=== PATIENT | male | born 1980 | race Caucasian/White ===

== ENCOUNTER 2017-04-11 15:15 | Inpatient (IN) | payer BC ==
[~2017-04-11] VITALS: Ht 188 cm; Wt 68.5 kg
--- NOTE | ~2017-04-11 | DS ---
PATIENT'S NAME: HOA LONDONO [facility] AGE: 36 Y [address] ROOM: [id number] [place], [place] [address] LOCATION: GPCU ADMIT DATE: 04/11/2017 Discharge Summary DISCHARGE DATE: 04/15/2017 FAMILY PHYSICIAN: Klaudia Sauceda MD ATTENDING PHYSICIAN: Alex Conklin [facility] COURSE: This is a 36-year-old white male with no significant past medical history, who was transferred from [place] to [facility] with sepsis secondary to possible aspiration pneumonia, also with epigastric right upper quadrant pain. Here, he was started on Cefepime and Flagyl and fluids. He had a CT scan of his abdomen and pelvis that was done in [place]. This was within normal limits. We obtained an abdominal ultrasound which showed gallbladder wall thickening. Wall thickening could be associated with incomplete gallbladder distention and/or acute cholecystitis. Surgery was consulted. They do no feel that in view of his CT abdomen and pelvis that did not show any acute abnormalities that this was consistent with acute cholecystitis. Recommended GI consultation. GI was consulted and they do not feel that he required any EGD acutely at this time. He was started on Protonix b.i.d. and was monitored on this. On April 13, he started developing a little bit hypoxia. Chest x-ray showed left-sided possible pneumonia and his antibiotics was tapered from cefepime to Flagyl. He was pancultured and it was negative so far. So, in view of his left lower lobe pneumonia and possible aspiration, he was started on clindamycin as he has a penicillin allergy. Of note, during this hospitalization, he had a couple bouts of small diarrhea. This was sent for C. diff and this was negative. He was also mildly hypokalemic and had mild hypomagnesemia and this was replaced. At the time of discharge, he is hemodynamically stable. The patient is on room air, not on oxygen, and his right upper quadrant pain has resolved. He did say that although it does come off and on at times. The patient will need to follow up with PCP in 1 week. I will discharge him on clindamycin 450 mg q.6 hours for a total of 10 days and I will also discharge him on Protonix 40 mg p.o. daily, and he is to follow up with GI in 1 month. PHYSICAL EXAMINATION: VITAL SIGNS: His vitals at discharge are, he is afebrile. His pulse in the upper 50s low 60s. Blood pressure is 120s/80s. He is saturating at 94% to 96% on room air. GENERAL: He is alert, awake. He is oriented x3. He is in no acute distress. HEART: Regular rate and rhythm. No rubs. No murmurs. LUNGS: His lungs are clear. No crackles. No wheezing present. ABDOMEN: No guarding. No rigidity. No distension. He has no epigastric or right upper quadrant tenderness that has resolved. Bowel sounds are normal. No pedal edema. NEUROLOGIC: Grossly normal. PATIENT'S NAME: HOA LONDONO [facility] AGE: 36 Y [address] ROOM: [place] [address] [facility] ADMIT DATE: 04/11/2017 Discharge Summary DISCHARGE DATE: 04/15/2017 FAMILY PHYSICIAN: Klaudia Sauceda MD ATTENDING PHYSICIAN: Alex Conklin PSYCHIATRIC: He is alert, awake, oriented. He is able to make his own decisions. DISCHARGE MEDICATIONS: 1. Clindamycin 450 q.6 hours for a total of 10 days. 2. Protonix 40 mg p.o. daily. MD YESICA OSORIO/sourav /[id number] d: 04/16/17 0402 t: 04/16/17 1331, DISCHARGE SUMMARY
--- NOTE | ~2017-04-11 | HP ---
PATIENT'S NAME: HOA LONDONO [facility] AGE: 36 Y [address] ROOM: [place] [address] LOCATION: GPCU ADMIT DATE: 04/11/2017 History & Physical DISCHARGE DATE: FAMILY PHYSICIAN: PHYSICIAN, UNKNOWN ATTENDING PHYSICIAN: Alex Conklin DATE OF SERVICE: CHIEF COMPLAINT: Severe sepsis. HISTORY OF PRESENTING ILLNESS: This 36-year-old, white male, previously healthy, was transferred to [facility] from [place] with severe sepsis. He presented there this morning with epigastric pain, right upper quadrant pain of 3 days' duration. He states it began on Sunday. He developed progressive nausea and has not been able to keep anything down for the last couple of days. He thinks that he has had some low-grade fevers, but admits that he has not actually taken his temperature at home. He denies chills or sweats. He does feel a little lightheaded and required the assistance of his father to get to the hospital this morning. On his arrival there, his pulse was tachycardic at greater than 100, and his systolic blood pressure was 102/62. He received some aggressive IV fluids with only marginal improvement. He did develop a temperature to 101.9 degrees Fahrenheit while he was there. He denies headaches. He does complain of some persistent nausea. He denies chest pain or significant shortness of breath. His pain is localized over the epigastrium and right side. It hurts to the touch and gets worse when he eats. He has not stooled in several days but does pass flatus. He voids without any difficulties. He denies any body rash. No numbness, tingling, or weakness in his extremities or any other associated physical or constitutional complaints. PAST MEDICAL HISTORY: ALLERGIES: PENICILLIN. ILLNESSES: Tobacco dependence (chewing tobacco). CURRENT MEDICATIONS: Ibuprofen 200 mg p.o. t.i.d. p.r.n. FAMILY HISTORY: PATIENT'S NAME: HOA LONDONO [facility] AGE: 36 Y [address] ROOM: [place] [address] LOCATION: GPCU ADMIT DATE: 04/11/2017 History & Physical DISCHARGE DATE: FAMILY PHYSICIAN: PHYSICIAN, UNKNOWN ATTENDING PHYSICIAN: Alex Conklin Father has high blood pressure and high cholesterol. SOCIAL HISTORY: He works at [employer]. He lives in [place]. He is a nonsmoker, but does chew tobacco on a daily basis. No significant alcohol use. He denies any illicit drug use. REVIEW OF SYSTEMS: As per HPI. All other organ systems reviewed and are negative. PHYSICAL EXAMINATION: VITAL SIGNS: Temperature 101.6, pulse 86, respirations 20, blood pressure 110/67, and O2 saturation 96% on room air. GENERAL: He is cooperative, lying in the bed, in no acute distress. SKIN: Supple, pink, warm, dry. No obvious rashes. HEENT: Otherwise, normocephalic. Sclerae, nonicteric. Pupils equal, round, and reactive to light and accommodation. Extraocular movements appear intact. Nasal turbinates normal in appearance. Oropharynx, clear. Mucous membranes are pink and moist. Teeth are in poor repair. NECK: Supple. No masses or adenopathy. No thyromegaly. No JVD. CHEST: Wall is symmetrical. Heart is regular without murmurs. LUNGS: Diminished, but clear bilaterally. No wheezes or crackles are heard. ABDOMEN: Soft. Exquisitely tender with some guarding at the right upper quadrant. No rebound tenderness. Bowel sounds are present but diminished. No masses. No hepatosplenomegaly. GENITOURINARY: Not done. RECTAL: Not done. EXTREMITIES: Display no clubbing, cyanosis, or edema. NEUROLOGIC: Neurologically, mentation is slowed, but there are no focal deficits. LABORATORY DATA AND IMAGING STUDIES: Laboratory and x-ray data: CBC showed a white blood cell count of 13.1, hemoglobin is 15.0, hematocrit 42.4, and platelets 234,000. Chemistries revealed BUN and creatinine of 12 and 1.3 respectively; sodium and potassium of 133 and 3.4; chloride and CO2 are 96 and 12; and calcium was 9.9. AST and ALT 25 and 17 respectively. Bilirubin was a little elevated at 1.3, amylase and lipase are 45 and 17 respectively. C-reactive protein was 103.6, and sedimentation rate of 38. ASSESSMENT AND PLAN: 1. Severe sepsis suspect biliary process. He did have a CT scan done at [place], but I do not have those results available yet. We will try to get the images pushed over and get a formal interpretation. In the meantime, aggressive supportive cares including continued IV fluids and PATIENT'S NAME: HOA LONDONO [facility] AGE: 36 Y [address] ROOM: [id number] [place], [place] [address] [facility] ADMIT DATE: 04/11/2017 History & Physical DISCHARGE DATE: FAMILY PHYSICIAN: PHYSICIAN, UNKNOWN ATTENDING PHYSICIAN: Alex Conklin broad-spectrum antibiotic therapy. We will switch to cefepime and add Flagyl. We will provide some symptomatic measures and follow up cultures when they are available. 2. Right upper quadrant abdominal pain. His bilirubin is only marginally elevated and liver enzymes are surprisingly normal. We will get right upper quadrant abdominal ultrasound and follow up on that when the results are known. 3. Hypokalemia. We will replace. 4. Hypotension. He is only marginally hypotensive and I suspect he is significantly volume depleted. He has responded fairly well to crystalloids. We will plan to continue with IV fluids as above. 5. Tobaccoism, urged cessation. We will offer nicotine supplementation. 6. Deep venous thrombosis prophylaxis. We will use low-dose Lovenox while he is inpatient. MD BRAYDEN CALVILLO/sourav /[id number] D: [id number] T: [id number] HISTORY & PHYSICAL
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
--- NOTE | ~2017-04-11 | CON ---
PATIENT'S NAME: HOA LONDONO [facility] AGE: 36 Y [address] ROOM: [facility] [place], [place] [address] LOCATION: GPCU ADMIT DATE: 04/11/2017 Consultation DISCHARGE DATE: FAMILY PHYSICIAN: Klaudia Sauceda MD ATTENDING PHYSICIAN: Alex Conklin REFERRING PHYSICIAN: Kiran Mandujano MD LOCATION: The patient is in room 6323. REASON FOR CONSULT: Abdominal pain. Possible need for EGD. HISTORY OF PRESENT ILLNESS: This is a 36-year-old male, who [facility] view of abdominal pain, possible sepsis, and cholecystitis. The patient has been addressed by Surgical Service. In this regard, his CT scan of the abdomen was normal as done at the [facility]. His white count was slightly high on admission, but is normal now. His liver function tests have been persistently normal. The patient has undergone CT scan, as well as abdominal ultrasound, which has been unrevealing. His serum amylase and lipase values were normal. Followup values are pending, question high CRP of 103.6, rather that relates to any possibility of underlying pancreatitis. The patient has been well otherwise and takes ibuprofen on an outpatient basis. Presently, he is covered with PPI as well as multiple antibiotics. He has had trouble with constipation; however, his bowels have been moving since after admission. PAST MEDICAL HISTORY: Otherwise negative. PAST SURGICAL HISTORY: None. MEDICATIONS: As noted in his records. SOCIAL HISTORY: Chews tobacco. Negative for smoking. Denies alcohol abuse. FAMILY HISTORY: None for GI cancer. REVIEW OF SYSTEMS: The 10-point review of system otherwise negative except as noted above. PATIENT'S NAME: HOA LONDONO [facility] AGE: 36 Y [address] ROOM: [address] [place], [place] [address] LOCATION: GPCU ADMIT DATE: 04/11/2017 Consultation DISCHARGE DATE: FAMILY PHYSICIAN: Klaudia Sauceda MD ATTENDING PHYSICIAN: Alex Conklin PHYSICAL EXAMINATION: GENERAL: A well-developed, well-nourished man, in no acute distress. VITAL SIGNS: Afebrile, vital signs are otherwise stable. HEENT: Nonicteric sclerae. Pupils round and reactive. NECK: Supple without palpable nodes. No thyromegaly. CHEST: Clear to auscultation. HEART: S1, S2 normal. ABDOMEN: Soft and nondistended with epigastric and left lower quadrant tenderness. There is no rebound or guarding. Bowel sounds are present. EXTREMITIES: No edema. NEUROLOGIC: Awake, alert, and appropriate without any focal deficits. IMAGING DATA: Chest x-ray revealing possible infiltrate, left lower lobe. ASSESSMENT AND PLAN: A 36-year-old male presenting with possible sepsis, likely source being left- sided pneumonia. The high CRP could be reflection of his underlying infection, and in consideration of abdominal pain, question pancreatitis, however, nothing has shown biochemically or radiologically so far. The patient has been evaluated for surgery. At this point, advised conservative management with antibiotics. I agree with continuation of antibiotics, followup abdominal and chest films, and coverage with proton pump inhibitor. I do not see the emergent need for upper endoscopy at this point and can be carried out once his condition is medically stable. Thank you for this consult. JEAN CAMPOVERDE MD AM/sourav /[id number] d: 04/13/173 t: 04/17/17 0741, CONSULTATION REPORT
[2017-04-11] MEDS ORDERED: ADVIL200 MG PO (15:37)
[2017-04-12 03:48] LABS: BASOPHIL % 0.4 %; EOSINOPHIL % 0.2 %; HEMATOCRIT 34.9 % (37.0-53.0); HEMOGLOBIN 11.8 g/dL (12.0-17.0); IMMATURE GRANULOCYTE # 0.1 K/uL (0.0-0.3); IMMATURE GRANULOCYTE % 0.6 %; LYMPHOCYTE # 1.5 K/uL (0.8-4.0); LYMPHOCYTE % 13.5 %; MCH 29.9 pg (27.0-34.0); MCHC 33.8 gm/dL (32.0-36.5); MCV 88.6 fl (83.0-98.0); MONOCYTE # 1.4 K/uL (0.0-1.0); MONOCYTE % 12.6 %; MPV 9.2 fl (9.4-12.4); NEUTROPHIL # (ANC) 8.3 K/uL (1.4-9.0); NEUTROPHIL % 72.7 %; NRBC % 0 /100WBC (0-0.00); PLATELET COUNT 187 K/uL (150-450); RBC 3.94 M/uL (4.00-6.00); WBC 11.3 K/uL (4.0-11.0)
[2017-04-12 04:05] LABS: ALBUMIN 2.7 gm/dL (3.5-5.0); ALK PHOS 61 IU/L (33-138); ALT 18 IU/L (12-78); ANION GAP 13.1 (10.0-19.0); AST 23 IU/L (10-40); BLOOD UREA NITROGEN 10 mg/dL (6-24); CALCIUM 7.6 mg/dL (8.5-10.5); CHLORIDE 111 mMol/L (96-110); CO2 21 mMol/L (22-32); CREATININE 0.8 mg/dL (0.6-1.3); POTASSIUM 4.1 mMol/L (3.7-5.1); SODIUM 141 mMol/L (135-145); TOTAL BILIRUBIN 0.5 mg/dL (0.0-1.5); TOTAL PROTEIN 6.3 g/dL (6.0-8.4)
[2017-04-13 06:11] LABS: BASOPHIL % 0.4 %; EOSINOPHIL # 0.1 K/uL (0.0-0.5); EOSINOPHIL % 0.6 %; HEMATOCRIT 35.9 % (37.0-53.0); HEMOGLOBIN 12.2 g/dL (12.0-17.0); IMMATURE GRANULOCYTE % 0.3 %; LYMPHOCYTE # 1.5 K/uL (0.8-4.0); LYMPHOCYTE % 15.2 %; MCH 30.7 pg (27.0-34.0); MCV 90.2 fl (83.0-98.0); MONOCYTE % 10.7 %; MPV 9.4 fl (9.4-12.4); NEUTROPHIL % 72.8 %; NRBC % 0 /100WBC (0-0.00); PLATELET COUNT 192 K/uL (150-450); RBC 3.98 M/uL (4.00-6.00); RDW-CV 12.7 % (11.9-14.6); WBC 9.7 K/uL (4.0-11.0)
[2017-04-13 06:27] LABS: ALBUMIN 2.8 gm/dL (3.5-5.0); ALK PHOS 70 IU/L (33-138); ALT 18 IU/L (12-78); ANION GAP 10.6 (10.0-19.0); AST 22 IU/L (10-40); BLOOD UREA NITROGEN 8 mg/dL (6-24); CALCIUM 8.2 mg/dL (8.5-10.5); CHLORIDE 108 mMol/L (96-110); CO2 24 mMol/L (22-32); CREATININE 0.8 mg/dL (0.6-1.3); POTASSIUM 3.6 mMol/L (3.7-5.1); SODIUM 139 mMol/L (135-145); TOTAL PROTEIN 6.6 g/dL (6.0-8.4)
[2017-04-13 06:31] LABS: TOTAL BILIRUBIN 0.8 mg/dL (0.0-1.5)
[2017-04-13 13:03] LABS: COCAINE NEGATIVE (NEGATIVE); OPIATES NEGATIVE (NEGATIVE)
[2017-04-13 13:04] LABS: AMPHETAMINE NEGATIVE (NEGATIVE); BARBITURATE NEGATIVE (NEGATIVE)
[2017-04-14 06:29] LABS: ALBUMIN 2.6 gm/dL (3.5-5.0); ALK PHOS 64 IU/L (33-138); ALT 17 IU/L (12-78); ANION GAP 11.2 (10.0-19.0); AST 19 IU/L (10-40); BLOOD UREA NITROGEN 5 mg/dL (6-24); CHLORIDE 105 mMol/L (96-110); CO2 27 mMol/L (22-32); CREATININE 0.7 mg/dL (0.6-1.3); MAGNESIUM 1.9 mg/dL (1.8-2.6); POTASSIUM 3.2 mMol/L (3.7-5.1); SODIUM 140 mMol/L (135-145); TOTAL PROTEIN 6.4 g/dL (6.0-8.4)
[2017-04-14 06:30] LABS: TOTAL BILIRUBIN 0.6 mg/dL (0.0-1.5)
[2017-04-15 10:27] LABS: BASOPHIL # 0.1 K/uL (0.0-0.2); BASOPHIL % 0.7 %; EOSINOPHIL # 0.2 K/uL (0.0-0.5); EOSINOPHIL % 3.1 %; HEMATOCRIT 35.9 % (37.0-53.0); HEMOGLOBIN 12.3 g/dL (12.0-17.0); IMMATURE GRANULOCYTE % 0.4 %; LYMPHOCYTE # 1.7 K/uL (0.8-4.0); LYMPHOCYTE % 25.3 %; MCH 30.2 pg (27.0-34.0); MCHC 34.3 gm/dL (32.0-36.5); MCV 88.2 fl (83.0-98.0); MONOCYTE # 0.6 K/uL (0.0-1.0); MONOCYTE % 8.3 %; NEUTROPHIL # (ANC) 4.3 K/uL (1.4-9.0); NEUTROPHIL % 62.2 %; NRBC % 0 /100WBC (0-0.00); RBC 4.07 M/uL (4.00-6.00); RDW-CV 12.6 % (11.9-14.6); WBC 6.9 K/uL (4.0-11.0)
[2017-04-15 10:28] LABS: PLATELET COUNT 293 K/uL (150-450)
[2017-04-15] MEDS ORDERED: CLEOCIN150 MG PO (11:38)
[2017-04-15] MEDS ORDERED: PROTONIX40 MG PO (11:39)
[2017-04-15 11:40] LABS: ALBUMIN 2.7 gm/dL (3.5-5.0); ALK PHOS 76 IU/L (33-138); ALT 59 IU/L (12-78); ANION GAP 9.5 (10.0-19.0); AST 100 IU/L (10-40); BLOOD UREA NITROGEN 5 mg/dL (6-24); CALCIUM 8.3 mg/dL (8.5-10.5); CHLORIDE 103 mMol/L (96-110); CO2 32 mMol/L (22-32); CREATININE 0.8 mg/dL (0.6-1.3); POTASSIUM 3.5 mMol/L (3.7-5.1); SODIUM 141 mMol/L (135-145); TOTAL BILIRUBIN 0.5 mg/dL (0.0-1.5); TOTAL PROTEIN 6.8 g/dL (6.0-8.4)
== END 2017-04-15 16:55 | disposition disaster alternative care site (69) | DRG 871 ==
LOC: GPCU 15:15
PROVIDERS: Hospitalist; Internal Medicine; Internal Medicine Gastroenterology; ADMIT Family Medicine
DX: A41.9 Sepsis, unspecified organism (principal); J69.0 Pneumonitis due to inhalation of food and vomit; I95.9 Hypotension, unspecified; E87.6 Hypokalemia; R10.11 Right upper quadrant pain; R10.13 Epigastric pain; E83.42 Hypomagnesemia; K27.9 Peptic ulcer, site unspecified, unspecified as acute or chronic, without hemorrhage or perforation; R19.7 Diarrhea, unspecified; R09.02 Hypoxemia; F17.220 Nicotine dependence, chewing tobacco, uncomplicated; Z88.0 Allergy status to penicillin; K82.9 Disease of gallbladder, unspecified; R00.0 Tachycardia, unspecified
CPT/HCPCS: C9113; J0692; J1170; J1650; J1956; J2405; J2550; J3475; J7030; J7040; J7050